=== PATIENT | male | born 1960 | race Caucasian/White ===

== ENCOUNTER 2016-06-29 13:30 | Emergency (ER) | payer BC ==
[2016-06-29 13:40] VITALS: BP 129/80; PULSE 70; RESP 16; TEMP 97.4; O2SAT 97
--- NOTE | 2016-06-29 14:10 | ED PDOC ---
HPI: Skin/Bite Injury Time Seen by Provider: 06/29/16 13:42 Chief Complaint (Nursing): Abnormal Skin Integrity Chief Complaint (Provider): Rash History Per: Patient History/Exam Limitations: no limitations Onset/Duration Of Symptoms: Days (x1 week) Current Symptoms Are (Timing): Still Present Quality Of Symptoms: Itching Severity: Mild Additional Complaint(s): Patient is a 56 year old male presenting to the ED complaining of rash under his arm pits x1 week. Patient got ketoconazole cream and oral medication with no relief. Patient used the entire tube of cream in one day. Rash is pruritic and errythemetous. PMD: none Past Medical History Reviewed: Historical Data, Nursing Documentation, Vital Signs Vital Signs: Last Vital Signs Temp 97.4 F L 06/29/16 13:36 Pulse 70 06/29/16 13:36 Resp 16 06/29/16 13:36 BP 129/80 06/29/16 13:36 Pulse Ox 97 06/29/16 14:19 - Medical History PMH: Back Problems (herniated disk), Chronic Pain (back x4 months, sees pain management Dr. Vazquez) Denies: HIV, Chronic Kidney Disease - Surgical History Surgical History: Hernia Repair - Family History Family History: States: No Known Family Hx - Home Medications Home Medications: Ambulatory Orders Medication Instructions Recorded Ibuprofen [Motrin Tab] 800 mg PO TID PRN 10/13/15 Oxycodone HCl/Acetaminophen 1 tab PO Q6H PRN 10/13/15 [Percocet 5-325 mg Tablet] Docusate Calcium [Kaopectate] 240 mg PO TID PRN #30 capsule 10/14/15 DiphenhydrAMINE [Benadryl] 50 mg PO Q4H PRN #30 cap 06/29/16 Ketoconazole 2% Cr [Nizoral] 1 appl TP BID #1 tube 06/29/16 Methylprednisolone [Medrol Dose 4 mg PO DAILY #21 mg 06/29/16 Pack (21 tabs)] - Allergies Allergies/Adverse Reactions: Allergies Allergy/AdvReac Type Severity Reaction Status Date / Time No Known Allergies Allergy Verified 10/13/15 13:44 Review of Systems ROS Statement: Except As Marked, All Systems Reviewed And Found Negative Constitutional: Negative for: Fever Skin: Positive for: Rash Physical Exam - Reviewed Nursing Documentation Reviewed: Yes Vital Signs Reviewed: Yes - Physical Exam Appears: Positive for: Well, Non-toxic, No Acute Distress Head Exam: Positive for: ATRAUMATIC, NORMAL INSPECTION, NORMOCEPHALIC Skin: Positive for: Rash (bilateral axilla with warmth and erthema no induration or fluctuance) Eye Exam: Positive for: Normal appearance, EOMI Neck: Positive for: Normal, Painless ROM Extremity: Positive for: Normal ROM Neurologic/Psych: Positive for: Alert, Oriented - ECG O2 Sat by Pulse Oximetry: 97 (RA) Pulse Ox Interpretation: Normal Medical Decision Making Medical Decision Making: Time: 13:45 Impression: 56 y/o male with rash Plan: Finger stick: 78 Benadryl 50 mg PO Prednisone 40 mg PO Pt educated on physical exam findgins. Rash appears to look more like a contact dermaittis. Advised that RX witll be provided for Medrol Dose pack and Benadryl , Ketoconazole Cream will be refilled as well. Scribe Attestation: Documented by Isabella Chavez acting as a scribe for Rossy Christianbeverlybrittany. Provider Attestation: All medical record entries made by the Scribe were at my direction and personally dictated by me. I have reviewed the chart and agree that the record accurately reflects my personal performance of the history, physical exam, medical decision making, and the department course for this patient. I have also personally directed, reviewed, and agree with the discharge instructions and disposition. Disposition - Clinical Impression Clinical Impression: Contact dermatitis - Patient ED Disposition Is Patient to be Admitted: No - Disposition Disposition: Routine/Home Disposition Time: 14:47 Condition: STABLE Prescriptions: DiphenhydrAMINE [Benadryl] 50 mg PO Q4H PRN #30 cap PRN Reason: Allergy Symptoms Methylprednisolone [Medrol Dose Pack (21 tabs)] 4 mg PO DAILY #21 mg Ketoconazole 2% Cr [Nizoral] 1 appl TP BID #1 tube
== END 2016-06-29 15:22 | disposition home or self-care (01) ==
LOC: H.ER 13:30
DX: L25.9 Unspecified contact dermatitis, unspecified cause (principal)